=== PATIENT | male | born 1945 | race Caucasian/White ===

== ENCOUNTER 2018-12-27 10:07 | Day surgery (SDC) | payer MEDICARE ==
[2018-12-25 15:22] VITALS: BMI 27.6
[~2018-12-27 10:07] MED LIST: LACTATED RINGERS 1,000 ML IV SCH; LIDOCAINE 1% 20 ML VIAL (10MG/ML) FOR IV START INTRADERMA PRN
[2018-12-27 10:37] VITALS: RESP 16; TEMP 97.8
[2018-12-27] MEDS ORDERED: PROPOFOL 10 MG/ML 20 ML VIAL IV ONE (11:39)
[2018-12-27] MEDS ORDERED: LIDOCAINE 1% INJ 10MG/ML (20 ML MDV) ONE (11:39)
--- NOTE | 2018-12-27 11:48 | P.PCN ---
Date of Procedure: 12/27/18 Procedure(s) Performed: BRIEF HISTORY: Patient is a 73-year-old, pleasant, white male, scheduled for an upper endoscopy as a part of evaluation of intermittent episodes stools for the last few months duration. He does complain of occasional heartburn.. PROCEDURE PERFORMED: Esophagogastroduodenoscopy with biopsy. PREOPERATIVE DIAGNOSIS: Intermittent dark stools for the last few months duration. IV sedation per anesthesia. PROCEDURE: After informed consent was obtained, the patient was brought into the endoscopy unit. IV sedation was administered by Anesthesia under continuous monitoring. Initially the Olympus GIF-140 video endoscope was inserted into the mouth. Esophagus intubated without any difficulty. It was gradually advanced into the stomach and duodenum and carefully examined. The bulb of the duodenum had scattered erosions and the second part of the duodenum appeared normal. The scope at this time was withdrawn to the stomach, adequately insufflated with air, and upon careful examination, mucosa of the antrum, had mild gastritis and biopsies were done from this area. The body, cardia and the fundus appeared normal. The scope was then withdrawn into the esophagus. The GE junction was located at 41 cm from the incisors. Small sliding Hiatal hernia noted. There were 2 superficial erosions at the GE junction consistent with LA grade B reflux esophagitis. The rest of the esophagus appeared normal and the patient tolerated the procedure well. IMPRESSION: 1. Antral erosive gastritis and duodenitis. 2. LA grade B reflux esophagitis. 3. Small hiatal hernia RECOMMENDATIONS: The findings of this examination were discussed with the patient as well as isr family. He will he was advised to follow with the biopsy results. He can use [id number] H2 blockers as needed for reflux symptoms.
[2018-12-27 12:06] VITALS: BP 112/68; PULSE 63
== END 2018-12-27 12:25 | disposition home or self-care (01) ==
LOC: ORWHC2ENDO 10:07
PROVIDERS: ATTEND Internal Medicine Gastroenterology
DX: K29.80 Duodenitis without bleeding (principal); K29.50 Unspecified chronic gastritis without bleeding; K29.60 Other gastritis without bleeding; K21.0 Gastro-esophageal reflux disease with esophagitis; K44.9 Diaphragmatic hernia without obstruction or gangrene; Z79.82 Long term (current) use of aspirin; Z79.899 Other long term (current) drug therapy; I10 Essential (primary) hypertension; E78.5 Hyperlipidemia, unspecified; Z87.891 Personal history of nicotine dependence
CPT/HCPCS: 88305; 43239; J2001; J2704

== ENCOUNTER 2019-01-06 16:59 | Observation (INO) | payer MEDICARE ==
[2019-01-06] MEDS ORDERED: SODIUM CHLORIDE 0.9% 500 ML 500 ML IV ONE (17:11)
--- NOTE | 2019-01-06 17:38 | ED ---
General Adult HPI - General Chief complaint: Chest Pain Stated complaint: Chest pain Time Seen by Provider: 01/06/19 17:10 Source: patient, RN notes reviewed Mode of arrival: wheelchair Limitations: no limitations - History of Present Illness Initial comments: 73 yo male presents for evaluation of chest pain. Patient has had intermittent chest pain over the past several weeks. He has no history of CAD. He is a nondiabetic, nonsmoker. He has history of hypertension. Chest pain is described as left-sided chest tightness. This began yesterday after a 30 minute walk. This was exertional chest pain. It was relieved with rest. No nausea vomiting or diaphoresis. Patient is chest pain-free at the time my evaluation. Denies abdominal pain. - Related Data Home Medications Medication Instructions Recorded Confirmed Aspirin 81 mg PO HS 12/25/18 01/06/19 Atorvastatin [Lipitor] 20 mg PO HS 12/25/18 01/06/19 LORazepam [Ativan] 0.5 mg PO BID PRN 12/25/18 01/06/19 Metoprolol Tartrate 25 mg PO QAM 12/25/18 01/06/19 amLODIPine BESYLATE 5 mg PO HS 12/25/18 01/06/19 traZODone HCL [Desyrel] 25 mg PO HS PRN 12/25/18 01/06/19 Allergies Allergy/AdvReac Type Severity Reaction Status Date / Time No Known Allergies Allergy Verified 01/06/19 18:08 Review of Systems ROS Statement: Those systems with pertinent positive or pertinent negative responses have been documented in the HPI. ROS Other: All systems not noted in ROS Statement are negative. Past Medical History Past Medical History: GERD/Reflux, Hyperlipidemia, Hypertension, Renal Disease Additional Past Medical History / Comment(s): had a black stool,chest pressure r/t esophagus,hx inguinal hernia,precancerous growth colon History of Any Multi-Drug Resistant Organisms: None Reported Past Surgical History: Bowel Resection, Hernia Repair Additional Past Surgical History / Comment(s): inguinal hernia repair Past Anesthesia/Blood Transfusion Reactions: No Reported Reaction Past Psychological History: No Psychological Hx Reported Smoking Status: Former smoker - Past Family History Mother Family Medical History: No Reported History General Exam Limitations: no limitations General appearance: alert, in no apparent distress Head exam: Present: atraumatic, normocephalic Eye exam: Present: normal appearance, PERRL ENT exam: Present: normal exam Neck exam: Present: normal inspection. Absent: tenderness, meningismus Respiratory exam: Present: normal lung sounds bilaterally. Absent: respiratory distress, wheezes Cardiovascular Exam: Present: regular rate, normal rhythm GI/Abdominal exam: Present: soft. Absent: distended, tenderness, guarding, rebound Rectal exam: Present: normal inspection, normal rectal tone. Absent: black stool, bloody stool Extremities exam: Present: normal inspection, normal capillary refill. Absent: pedal edema, calf tenderness Neurological exam: Present: alert, oriented X3, CN II-XII intact. Absent: motor sensory deficit Psychiatric exam: Present: normal affect, normal mood Skin exam: Present: warm, dry, intact. Absent: cyanosis, diaphoretic, pallor Course Vital Signs 01/06/19 01/06/19 17:03 19:03 Temperature 97.5 F L Pulse Rate 90 82 Respiratory 18 16 Rate Blood Pressure 185/53 147/93 O2 Sat by Pulse 95 93 L Oximetry EKG Findings - EKG Comments: EKG Findings:: EKG: Normal sinus rhythm, left axis deviation, inferior infarct, rate of 83, AR interval 194, QRS duration 98, QTC 4:30 ST segment elevation. Medical Decision Making - Medical Decision Making 73-year-old male presenting with exertional chest pain relieved by rest. No history of CAD. EKG negative for ST segment elevation. Chest x-rays obtained, does show concern for opacity elevated patient has no symptoms of pneumonia, no fever, no cough, no dyspnea. He is chest pain-free while the emergency de partment. He has normal CBC, CMP unremarkable, initial troponin is negative. Patient given aspirin emergency department. Will be admitted for serial cardiac enzymes, telemetry, cardiology consultation. Case discussed with Dr. Bowen, will admit - Lab Data Result diagrams: 01/06/19 17:40 01/06/19 17:40 Lab Results 01/06/19 01/06/19 01/06/19 Range/Units 17:33 17:40 17:40 WBC 9.0 (3.8-10.6) k/uL RBC 4.94 (4.30-5.90) m/uL Hgb 15.2 (13.0-17.5) gm/dL Hct 46.6 (39.0-53.0) % MCV 94.4 (80.0-100.0) fL MCH 30.7 (25.0-35.0) pg MCHC 32.5 (31.0-37.0) g/dL RDW 12.9 (11.5-15.5) % Plt Count 262 (150-450) k/uL Neutrophils % 56 % Lymphocytes % 28 % Monocytes % 8 % Eosinophils % 4 % Basophils % 1 % Neutrophils # 5.0 (1.3-7.7) k/uL Lymphocytes # 2.5 (1.0-4.8) k/uL Monocytes # 0.7 (0-1.0) k/uL Eosinophils # 0.3 (0-0.7) k/uL Basophils # 0.1 (0-0.2) k/uL PT (9.0-12.0) sec INR (<1.2) APTT (22.0-30.0) sec Sodium 140 (137-145) mmol/L Potassium 4.6 (3.5-5.1) mmol/L Chloride 106 (98-107) mmol/L Carbon Dioxide 23 (22-30) mmol/L Anion Gap 11 mmol/L BUN 21 H (9-20) mg/dL Creatinine 1.30 H (0.66-1.25) mg/dL Est GFR (CKD-EPI)AfAm 62 (>60 ml/min/1.73 sqM) Est GFR (CKD-EPI)NonAf 54 (>60 ml/min/1.73 sqM) Glucose 131 H (74-99) mg/dL Calcium 10.1 (8.4-10.2) mg/dL Magnesium 2.1 (1.6-2.3) mg/dL Total Bilirubin 0.4 (0.2-1.3) mg/dL AST 34 (17-59) U/L ALT 59 (21-72) U/L Alkaline Phosphatase 84 (38-126) U/L Troponin I (0.000-0.034) ng/mL NT-Pro-B Natriuret Pep pg/mL Total Protein 8.1 (6.3-8.2) g/dL Albumin 4.9 (3.5-5.0) g/dL Stool Occult Blood Negative (Negative) 04/20/19 04/20/19 04/20/19 Range/Units 17:40 17:40 17:40 WBC (3.8-10.6) k/uL RBC (4.30-5.90) m/uL Hgb (13.0-17.5) gm/dL Hct (39.0-53.0) % MCV (80.0-100.0) fL MCH (25.0-35.0) pg MCHC (31.0-37.0) g/dL RDW (11.5-15.5) % Plt Count (150-450) k/uL Neutrophils % % Lymphocytes % % Monocytes % % Eosinophils % % Basophils % % Neutrophils # (1.3-7.7) k/uL Lymphocytes # (1.0-4.8) k/uL Monocytes # (0-1.0) k/uL Eosinophils # (0-0.7) k/uL Basophils # (0-0.2) k/uL PT 10.3 (9.0-12.0) sec INR 1.0 (<1.2) APTT 26.0 (22.0-30.0) sec Sodium (137-145) mmol/L Potassium (3.5-5.1) mmol/L Chloride (98-107) mmol/L Carbon Dioxide (22-30) mmol/L Anion Gap mmol/L BUN (9-20) mg/dL Creatinine (0.66-1.25) mg/dL Est GFR (CKD-EPI)AfAm (>60 ml/min/1.73 sqM) Est GFR (CKD-EPI)NonAf (>60 ml/min/1.73 sqM) Glucose (74-99) mg/dL Calcium (8.4-10.2) mg/dL Magnesium (1.6-2.3) mg/dL Total Bilirubin (0.2-1.3) mg/dL AST (17-59) U/L ALT (21-72) U/L Alkaline Phosphatase (38-126) U/L Troponin I <0.012 (0.000-0.034) ng/mL NT-Pro-B Natriuret Pep 36 pg/mL Total Protein (6.3-8.2) g/dL Albumin (3.5-5.0) g/dL Stool Occult Blood (Negative) Disposition Clinical Impression: Chest pain Disposition: ADMITTED IP TO THIS [facility] Condition: Stable Is patient prescribed a controlled substance at d/c from ED?: No Referrals: Shane Castaneda MD [Primary Care Provider] - 1-2 days Decision to Admit Reason: Admit from EC Decision Date: 01/06/19 Decision Time: 19:40
[2019-01-06 18:12] LABS: Basophils # (A) 0.1 k/uL (0-0.2); Basophils % (A) 1 %; Eosinophils # (A) 0.3 k/uL (0-0.7); Eosinophils % (A) 4 %; HCT 46.6 % (39.0-53.0); HGB 15.2 gm/dL (13.0-17.5); Lymphocytes # (A) 2.5 k/uL (1.0-4.8); Lymphocytes % (A) 28 %; MCH 30.7 pg (25.0-35.0); MCHC 32.5 g/dL (31.0-37.0); MCV 94.4 fL (80.0-100.0); Monocytes # (A) 0.7 k/uL (0-1.0); Monocytes % (A) 8 %; Neutrophils % (A) 56 %; Platelet Count 262 k/uL (150-450); RBC 4.94 m/uL (4.30-5.90); RDW 12.9 % (11.5-15.5)
[2019-01-06 18:20] LABS: Prothrombin Time 10.3 sec (9.0-12.0)
[2019-01-06 18:24] LABS: Albumin 4.9 g/dL (3.5-5.0); Calcium 10.1 mg/dL (8.4-10.2); Magnesium 2.1 mg/dL (1.6-2.3); Potassium 4.6 mmol/L (3.5-5.1); Total Bilirubin 0.4 mg/dL (0.2-1.3); Total Protein 8.1 g/dL (6.3-8.2)
--- NOTE | 2019-01-06 18:29 | XR ---
EXAMINATION TYPE: XR chest 2V DATE OF EXAM: 01/06/2019 COMPARISON: 10/04/2012 HISTORY: 73-year-old male with chest pain TECHNIQUE: PA and lateral views FINDINGS: Heart normal size. Aorta within normal limits. Mild diffuse interstitial prominence of the chronic ap pearance. Low lung volumes. Patchy posterior basilar opacity on the lateral view. No pleural effusion . IMPRESSION: Hypoventilatory changes. Patchy posterior basilar opacity on the lateral view could represent atelect asis or developing pneumonia. Correlate with patient's symptoms.
[2019-01-06] MEDS ORDERED: ASPIRIN 325 MG TAB PO STA (18:47)
[2019-01-06 19:07] VITALS: RESP 16
[2019-01-06] MEDS ORDERED: SODIUM CHLORIDE 0.9% 1,000 ML IV SCH (19:15)
[2019-01-06] MEDS ORDERED: ONDANSETRON 4 MG/2 ML VIAL IVP PRN (19:37)
[2019-01-06] MEDS ORDERED: NALOXONE 0.4 MG/ML 1 ML VIAL IV PRN (19:37)
[2019-01-06] MEDS ORDERED: ACETAMINOPHEN TAB 325 MG TAB PO PRN (19:37)
[2019-01-06] MEDS ORDERED: traZODone HCL 50 MG TAB PO PRN (23:10)
[2019-01-06] MEDS ORDERED: LORazepam 0.5 MG TAB PO PRN (23:10)
[2019-01-06] MEDS ORDERED: ATORVASTATIN 20 MG TAB PO SCH (23:15)
[2019-01-06] MEDS ORDERED: amLODIPine 5 MG TAB PO SCH (23:22)
[2019-01-06] MEDS ORDERED: diphenhydrAMINE 50 MG CAP PO ONE (23:30)
--- NOTE | 2019-01-06 23:59 | P.HPIM ---
History of Present Illness H&P Date: 01/06/19 The patient is a 73 yo M with a PMH of HTN, HLD, and GERD who presented to the ED for recent worsening of chronic L sided chest pain. The patient notes that he has had a chronic L-sided chest pain for several years, which occurs intermittently and has been worked up in the past several times and deemed non- cardiac. The patient reports that yesterday while doing his daily walk, the pain suddenly worsened to an 8/10, w/ radiation to the L thigh, arm, and neck. The pain gradually improved upon presentation to the ED. The patient also noted a vague dizziness sensation on-going for the past several days, non-positional. He denied associated SOB, nausea, vomiting, diaphoresis, or palpitations. He underwent an extensive evaluation in the ED w/ troponin negative, BNP 36, EKG as reviewed by me showing NSR @ 83 bpm w/ left axis deviation, [place] segment 194, and QTC 430; CXR showing patchy posterior basilar opacity, WBC 9, Hgb 15, and Cr 1.30 (baseline 1.3). He was subsequently admitted to the medicine service for evaluation by Cardiology. Review of Systems Pertinent positives and negatives as discussed in HPI, a complete review of systems was performed and all other systems are negative. Past Medical History Past Medical History: GERD/Reflux, Hyperlipidemia, Hypertension, Renal Disease Additional Past Medical History / Comment(s): had a black stool,chest pressure r/t esophagus,hx inguinal hernia,precancerous growth colon History of Any Multi-Drug Resistant Organisms: None Reported Past Surgical History: Bowel Resection, Hernia Repair Additional Past Surgical History / Comment(s): inguinal hernia repair Past Anesthesia/Blood Transfusion Reactions: No Reported Reaction Smoking Status: Never smoker - Past Family History Mother Family Medical History: No Reported History Medications and Allergies Home Medications Medication Instructions Recorded Confirmed Type Aspirin 81 mg PO HS 12/25/18 01/06/19 History Atorvastatin [Lipitor] 20 mg PO HS 12/25/18 01/06/19 History LORazepam [Ativan] 0.5 mg PO BID PRN 12/25/18 01/06/19 History Metoprolol Tartrate 25 mg PO QAM 12/25/18 01/06/19 History amLODIPine BESYLATE 5 mg PO HS 04/08/19 04/20/19 History traZODone HCL [Desyrel] 50 mg PO HS PRN 12/25/18 01/06/19 History Allergies Allergy/AdvReac Type Severity Reaction Status Date / Time No Known Allergies Allergy Verified 01/06/19 20:44 Physical Exam Vitals: Vital Signs Temp Pulse Pulse Resp BP BP Pulse Ox 01/06/19 23:37 98.1 F 89 16 171/70 95 01/06/19 20:46 97.7 F 81 16 183/91 95 01/06/19 20:20 77 16 152/91 95 01/06/19 20:00 16 01/06/19 19:03 82 16 147/93 93 L 01/06/19 17:03 97.5 F L 90 18 185/53 95 Intake and Output 01/06/19 01/06/19 01/07/19 14:59 22:59 06:59 Other: Weight 89.358 kg General: non toxic, no distress, appears at stated age, normal weight Derm: no unusual rashes/lesions no unusual ecchymoses, warm, dry Head: atraumatic, normocephalic, symmetric Eyes: EOMI, no lid lag, anicteric sclera, pupils equal round reactive to light ENT: Nose and ears atraumatic, no thrush, no pharyngeal erythema Neck: No thyromegaly, no cervical lymphadenopathy, trachea midline, supple Mouth: no lip lesion, mucus membranes moist Cardiovascular: S1S2 reg, no murmur, positive posterior tibial pulse bilateral, no edema, capillary refill less than 2 seconds Lungs: CTA bilateral, no rhonchi, no rales , no accessory muscle use Abdominal: soft, nontender to palpation, no guarding, no appreciable organomegaly, normal bowel sounds Ext: no gross muscle atrophy, muscle strength 5 out of 5 in all 4 extremities grossly, no contractures, Neuro: CN II-XI grossly intact, light touch intact all 4 extremities, finger to nose within normal limits, Psych: Alert, oriented, appropriate affect Results CBC & Chem 7: 01/06/19 17:40 01/06/19 17:40 Labs: Abnormal Lab Results - Last 24 Hours (Table) 01/06/19 Range/Units 17:40 BUN 21 H (9-20) mg/dL Creatinine 1.30 H (0.66-1.25) mg/dL Glucose 131 H (74-99) mg/dL Thrombosis Risk Factor Assmnt - Choose All That Apply Each Risk Factor Represents 3 Points: Age 75 years or older Thrombosis Risk Factor Assessment Total Risk Factor Score: 3 Thrombosis Risk Factor Assessment Level: Moderate Risk Assessment and Plan Plan: Chest pain, r/o ACS -Cardiac monitoring -Cardiology consult -Trend troponin and EKG -Continue with aspirin and statin Chronic conditions: Hypertension, hyperlipidemia -Resume home medications DVT//GI prophylaxis -Heparin The patient is admitted with an anticipated less than 2 midnight stay for evaluation of chest pain. CODE STATUS:Full Code Discussed with: Patient Anticipated discharge date: 01/07/[address]: Home A total of 35 minutes was spent on the care of this complex patient more than 50% of the time was spent in counseling and care coordination.
[2019-01-07] MEDS: HEPARIN SODIUM,PORCINE 5,000 UNIT/ML 1 ML VIAL SQ SCH ×2 (00:45→08:29)
[2019-01-07] MEDS ORDERED: METOPROLOL TARTRATE 25 MG TAB PO SCH (09:00)
[2019-01-07] MEDS ORDERED: ASPIRIN 325 MG TAB PO SCH (09:00)
[2019-01-07 09:18] VITALS: BP 169/88; PULSE 83; TEMP 97.4
--- NOTE | 2019-01-07 11:00 | P.DS ---
Providers Date of admission: 01/06/19 19:38 Expected date of discharge: 01/07/19 Attending physician: Nayeli Bowen MD Consults: 01/06/19 19:38 Consult Physician Routine Consulting Provider: Devin Mendiola Consult Reason/Comments: CP Do you want consulting provider notified?: Yes Primary care physician: Lemuel Shattuck Hospital Course: The patient is a 73 yo M with a PMH of HTN, HLD, and GERD who presented to the ED for recent worsening of chronic L sided chest pain. The patient notes that he has had a chronic L-sided chest pain for several years, which occurs intermittently and has been worked up in the past several times and deemed non- cardiac. The patient reports that yesterday while doing his daily walk, the pain suddenly worsened to an 8/10, w/ radiation to the L thigh, arm, and neck. The pain gradually improved upon presentation to the ED. The patient also noted a vague dizziness sensation on-going for the past several days, non-positional. He denied associated SOB, nausea, vomiting, diaphoresis, or palpitations. He underwent an extensive evaluation in the ED w/ troponin negative, BNP 36, EKG as reviewed by me showing NSR @ 83 bpm w/ left axis deviation, [place] segment 194, and QTC 430; CXR showing patchy posterior basilar opacity, WBC 9, Hgb 15, and Cr 1.30 (baseline 1.3). He was subsequently admitted to the medicine service for evaluation by Cardiology. Troponin was less than 0.0123, EKG showing normal sinus rhythm with left axis deviation. Patient was evaluated by cardiology and cleared for outpatient stress test as per RN taking care of the patient. Patient was seen and examined prior to discharge. No acute events overnight. Patient reports mild improvement in his chest pain but continues to report some discomfort. He denies any nausea or vomiting. He denies any fever or chills. Reports a history of esophageal problems that has led to chest pain in the past. More recently, walked about 30 minutes before experiencing chest discomfort radiating to the left side. General: Assessment and plan, [no distress], [appears at stated age] Derm: [warm], [dry] Head: [atraumatic], [normocephalic], [symmetric] Eyes: [EOMI], [no lid lag], [anicteric sclera] Mouth: [no lip lesion], [mucus membranes moist] Cardiovascular: [S1S2 reg], [no murmur], [positive posterior tibial pulse bilateral], Lungs: [CTA bilateral], [no rhonchi, no rales] , [no accessory muscle use] Abdominal: [soft], [ nontender to palpation], [no guarding], [no appreciable organomegaly] Ext: [no gross muscle atrophy], [no edema], [no contractures] Neuro: [ CN II-XI grossly intact], [no focal neuro deficits] Psych: [Alert], [oriented], [appropriate affect] Assessment and Plan Chest pain Hypertension Hyperlipidemia Acute kidney injury Troponin less than 0.0123 with EKG showing normal sinus rhythm with left axis deviation. Continue aspirin and Lipitor. Continue metoprolol. Cardiology consulted, cleared for discharge as per RN taking care of the patient for outpatient stress. Telemetry monitoring. Continue metoprolol Continue Lipitor Creatinine 1.3. Likely due to dehydration. DC IVF and encourage hydration by mouth. Patient evaluated by cardiology. They recommended that the patient stay and received a stress test tomorrow the patient feels as if he can be discharged and follow-up in the outpatient setting. Cardiology is agreeable and will set up an outpatient stress test. Discussed emergency symptoms to come back - chest pain, shortness of breath, palpitations, dizziness. Advised patient to not exert himself until the completion of stress test. Will discharge with nitroglycerin. Pertinent Studies: Chest x-ray Patient Condition at Discharge: Stable Plan - Discharge Summary New Discharge Prescriptions: New Nitroglycerin Sl Tabs [Nitrostat] 0.4 mg SUBLINGUAL Q5M PRN #25 tab PRN Reason: Chest Pain Continue amLODIPine BESYLATE 5 mg PO HS Metoprolol Tartrate 25 mg PO QAM Atorvastatin [Lipitor] 20 mg PO HS Aspirin 81 mg PO HS traZODone HCL [Desyrel] 50 mg PO HS PRN PRN Reason: sleep LORazepam [Ativan] 0.5 mg PO BID PRN PRN Reason: Anxiety Discharge Medication List Aspirin 81 mg PO HS 12/25/18 [History] Atorvastatin [Lipitor] 20 mg PO HS 12/25/18 [History] LORazepam [Ativan] 0.5 mg PO BID PRN 12/25/18 [History] Metoprolol Tartrate 25 mg PO QAM 12/25/18 [History] amLODIPine BESYLATE 5 mg PO HS 12/25/18 [History] traZODone HCL [Desyrel] 50 mg PO HS PRN 12/25/18 [History] Nitroglycerin Sl Tabs [Nitrostat] 0.4 mg SUBLINGUAL Q5M PRN #25 tab 01/07/19 [Rx] Follow up Appointment(s)/Referral(s): Shane Castaneda MD [Primary Care Provider] - 1-2 days Devin Mendiola MD [STAFF PHYSICIAN] - 1 Week Activity/Diet/Wound Care/Special Instructions: Diet: Cardiac Follow-up with PCP within 1-2 days of discharge. Follow-up with cardiology within 1 week of discharge. Please follow-up with cardiology regarding scheduling an outpatient stress test. Please take all medications as advised. Discharge Disposition: HOME SELF-CARE
--- NOTE | 2019-01-07 12:47 | CONS ---
CONSULTATION CHIEF COMPLAINT: Chest pain. HISTORY: Mr. Garcia is a 73-year-old gentleman with history of dyslipidemia, hypertension, and esophageal spasm who has had multiple prior episodes of atypical chest pain and has had multiple prior stress tests. Comes to hospital complaining of chest discomfort. It is somewhat different from his usual chest pain; it is more sharp, more localized to the left lateral side of his chest. There is no clear-cut relationship to exertion. It is unassociated with diaphoresis. There is no shortness of breath. His EKG shows sinus rhythm with left axis deviation. His cardiac enzymes have been negative. I advised the patient to undergo a stress test for further evaluation. Understanding all the issues, he wants to go home as it is [place], and then get this done as outpatient. If he has further episodes of chest pain, he states that he will come back to the hospital. PAST MEDICAL HISTORY: Significant for hypertension and dyslipidemia. CURRENT MEDICATIONS: 1. Desyrel. 2. Amlodipine 5 mg daily. 3. Metoprolol 25 daily. 4. Ativan. 5. Lipitor. 6. Aspirin. ALLERGIES: There are no known drug allergies. FAMILY HISTORY: Negative for premature coronary artery disease. SOCIAL HISTORY: Negative for smoking, EtOH abuse, or drug abuse. REVIEW OF SYSTEMS: HEENT is unremarkable. Cardiac as described above. Respiratory negative. GI negative. negative. Allergy/immunology unremarkable. Endocrine unremarkable. Derm negative. Constitutional unremarkable. Oncological negative. The rest of the system review is not relevant. EXAM: Comfortable at rest. Blood pressure is elevated at 170/70, respirations 18, O2 sat is normal. There is no jugular venous distention. Carotid upstroke is normal. There is no bruit. Chest exam reveals good air entry bilaterally. Heart exam reveals first and second heart sounds. S4 is heard. Abdomen is soft. Exam of extremities did not reveal edema. Peripheral pulses are felt. LABS AND DIAGNOSTICS: EKG shows sinus rhythm with left axis deviation. Cardiac enzymes are negative. ASSESSMENT: 1. Precordial chest pain, somewhat atypical. 2. Uncontrolled hypertension. PLAN: Increase the dose of Norvasc to 10 mg daily. I will schedule the patient for an outpatient stress test and arrange follow up with Dr. Mcpherson who has seen him a year ago. MMODL / IJN: [id number] /
[2019-01-07] MEDS ORDERED: amLODIPine 5 MG TAB PO SCH (21:00)
== END 2019-01-07 11:15 | disposition home or self-care (01) ==
LOC: EC 16:59 → 1SOBS 19:38
PROVIDERS: ADMIT Internal Medicine; ATTEND Internal Medicine
DX: R07.89 Other chest pain (principal); N17.9 Acute kidney failure, unspecified; I10 Essential (primary) hypertension; G89.29 Other chronic pain; R42 Dizziness and giddiness; K21.9 Gastro-esophageal reflux disease without esophagitis; E78.5 Hyperlipidemia, unspecified; Z79.82 Long term (current) use of aspirin; Z79.899 Other long term (current) drug therapy; Z87.891 Personal history of nicotine dependence; Z90.49 Acquired absence of other specified parts of digestive tract; Z87.19 Personal history of other diseases of the digestive system
CPT/HCPCS: 96360; 99285; 36415; 93005; 85379; 83880; 80053; 83735; 84484 ×2; 85025; 85610; 85730; 82272; 71046; G0378 ×2

== ENCOUNTER → 2022-01-19 | Outpatient (CLI) | payer MEDICARE ==
--- NOTE | 2022-01-19 10:44 | US ---
EXAMINATION TYPE: US groin RT DATE OF EXAM: 01/19/2022 COMPARISON: NONE CLINICAL HISTORY: R10.30 LOWER ABD PAIN. h/o right hernia repair 7-8 years ago, new "funny" sensation within right groin, gets better when he walks Focal area adjacent to iliac vessels with notable peristalsing and extension seen area during valsalv a, possible inguinal hernia IMPRESSION: Suspect recurrent small to moderate-sized right inguinal hernia on images saved that bec omes more prominent with Valsalva, technologist suspects peristalsing bowel during real-time scanning . Consider CT pelvis confirmation.
== END | disposition home or self-care (01) ==
LOC: RADUSWWP 10:04
PROVIDERS: ATTEND Internal Medicine
DX: R10.30 Lower abdominal pain, unspecified (principal)

== ENCOUNTER → 2022-04-16 | Outpatient (CLI) | payer MEDICARE ==
--- NOTE | 2022-04-16 09:48 | US ---
EXAMINATION TYPE: US abdomen complete DATE OF EXAM: 04/16/2022 COMPARISON: NONE CLINICAL HISTORY: R74.8 elevated liver enzymes. TECHNIQUE: Multiple sonographic images of the abdomen are obtained. FINDINGS: EXAM MEASUREMENTS: Liver Length: 16cm Gallbladder Wall: unable to visualize CBD: unable to visualize Spleen: 8.2m Right Kidney: 9.1 x 4.9 x 4.2cm Left Kidney: 10.0 x 5.3 x 5.5cm cm ACOUSTICAL TILE PATTERNMAKER NOTES: Study severely limited due to overlying bowel gas and position of organs. Pancreas: wnl Liver: left lobe appears wnl, unable to visualize right lobe of liver due to liver position and tigh t intercostal spaces, attempted with probes with different footprints Gallbladder: wnl Evidence for sonographic Lester's sign: no CBD: not seen Spleen: limited views Right Kidney: limited views show no hydronephrosis or mass Left Kidney: limited views show no hydronephrosis or mass Upper IVC: wnl Abd Aorta: wnl IMPRESSION: 1. No acute ultrasound abnormality of the abdomen. There is some limitation due to bowel gas.
== END | disposition home or self-care (01) ==
LOC: RADUSWWP 08:34
PROVIDERS: ATTEND Internal Medicine
DX: R74.8 Abnormal levels of other serum enzymes (principal)
CPT/HCPCS: 76700

== ENCOUNTER → 2022-07-09 | Outpatient (CLI) | payer MEDICARE ==
--- NOTE | 2022-07-09 10:20 | US ---
EXAMINATION TYPE: US liver DATE OF EXAM: 07/09/2022 COMPARISON: NONE CLINICAL HISTORY: R74.01 ELEVATION OF LEVELS OF LIVER TRANSAMINASE L. elevated liver enzymes gallblad hung removed. TECHNIQUE: Multiple sonographic images of the right upper quadrant are obtained. FINDINGS: EXAM MEASUREMENTS: Liver Length: 14.8 cm Gallbladder Wall: Surgically absent cm CBD: .6 cm Right Kidney: 8.7 x 4.7 x 5.0 cm ROLL FORM OPERATOR NOTES: Pancreas: Duct visualized 0.2 cm Liver: right lobe limited due to body habitus. Otherwise normal sonographic appearance. Gallbladder: Surgically absent Evidence for sonographic Lester's sign: No CBD: wnl Right Kidney: No hydronephrosis or masses seen IMPRESSION: No evidence for acute abdominal process.
== END | disposition home or self-care (01) ==
LOC: RADUSWWP 09:21
PROVIDERS: ATTEND Internal Medicine
DX: R74.01 Elevation of levels of liver transaminase levels (principal)
CPT/HCPCS: 76705

== ENCOUNTER 2023-01-18 10:41 | Day surgery (SDC) | payer MEDICARE ==
[~2023-01-18 10:41] MED LIST changes: -LIDOCAINE 1% 20 ML VIAL (10MG/ML) FOR IV START INTRADERMA PRN
[2023-01-18 11:06] VITALS: TEMP 97.4
[2023-01-18] MEDS ORDERED: PROPOFOL 10 MG/ML 20 ML VIAL IV ONE (11:53)
--- NOTE | 2023-01-18 12:04 | P.PCN ---
Date of Procedure: 01/18/23 Procedure(s) Performed: BRIEF HISTORY: Patient is a 78-year-old pleasant white male scheduled for an elective colonoscopy as a part of screening for colon cancer. PROCEDURE PERFORMED: Colonoscopy with biopsy. PREOPERATIVE DIAGNOSIS: Screening for colon cancer. IV sedation per Anesthesia. PROCEDURE: After informed consent was obtained, the patient, was brought into the endoscopy unit. IV sedation was administered by Anesthesia under continuous monitoring. Digital rectal examination was normal. Initially the Olympus CF-160 flexible video colonoscope was then inserted in the rectum, gradually advanced into the right colon without any difficulty. Ileocolic anastomosis identified and appeared normal. Mucosa of the, ascending colon, transverse colon, appeared normal. In the descending colon there was a 3 mm and 6 mm polyp that was removed by cold biopsy. Rest of the descending colon, sigmoid colon, and rectum appeared normal. Scattered sigmoid diverticulosis seen. Retroflexion was performed in the rectum and no lesions were seen. The patient tolerated the procedure well. IMPRESSION: 3 mm and 6 mm ascending colon polyp status post cold biopsy Scattered left sided diverticulosis Normal right-sided ileocolic anastomosis RECOMMENDATIONS: Findings of this examination were discussed with the patient as his family..Advised to follow with the biopsy results. If the biopsy reveals adenoma he can have a repeat colonoscopy in 5 years based on his overall medical condition
[2023-01-18 12:08] VITALS: BP 117/70; PULSE 74; RESP 16
== END 2023-01-18 12:39 | disposition home or self-care (01) ==
LOC: ORWHC2ENDO 10:41
PROVIDERS: ATTEND Internal Medicine Gastroenterology
DX: Z12.11 Encounter for screening for malignant neoplasm of colon (principal); D12.4 Benign neoplasm of descending colon; K57.30 Diverticulosis of large intestine without perforation or abscess without bleeding; Z79.899 Other long term (current) drug therapy; I10 Essential (primary) hypertension; E78.5 Hyperlipidemia, unspecified; K21.9 Gastro-esophageal reflux disease without esophagitis
CPT/HCPCS: 88305; 45380; J2704